=== PATIENT | female | born 1940 | race African-American/Black ===

== ENCOUNTER 2016-11-12 09:37 | Inpatient (IN) | payer OTHER ==
[~2016-11-12] VITALS: Ht 157.5 cm; Wt 93.4 kg
[2016-11-12] MEDS ORDERED: SIMVASTATIN5 MG ORAL (09:51)
[2016-11-12] MEDS ORDERED: METOPROLOL SUC100 MG ORAL (09:51)
[2016-11-12 09:59] LABS: BASOPHILS % (AUTO) 1.3 % (0.0-2.0); EOSINOPHILS % (AUTO) 0.3 % (0.0-3.0); LYMPHOCYTES % (AUTO) 33.6 % (20.0-45.0); MEAN CORPUSCULAR HGB CONC 30.7 G/DL (32.0-36.0); MEAN CORPUSCULAR VOLUME 81 FL (80-99); MEAN PLATELET VOLUME 10.3 FL (6.5-10.1); NEUTROPHILS % (AUTO) 59.8 % (45.0-75.0); PLATELET COUNT 217 K/UL (150-450); RED BLOOD COUNT 5.76 M/UL (4.20-5.40); RED CELL DISTRIBUTION WIDTH 14.9 % (11.6-14.8); WHITE BLOOD COUNT 12.6 K/UL (4.8-10.8)
[2016-11-12 10:10] LABS: INR 1.1 (0.9-1.1); PROTHROMBIN TIME 11.5 SEC (9.30-11.50)
[2016-11-12 10:14] LABS: ALANINE AMINOTRANSFERASE 17 U/L (3-33); ANION GAP 18 (5-15); ASPARTATE AMINO TRANSFERASE 27 U/L (5-40); CALCIUM 9.9 mg/dL (8.6-10.2); CARBON DIOXIDE 24 mEQ/L (20-30); CHLORIDE 101 mEQ/L (98-107); CREATININE 0.8 mg/dL (0.5-0.9); HEMOLYSIS 83; LIPASE 42 U/L (< 60); MAGNESIUM 2.1 mg/dL (1.7-2.5); PHOSPHORUS 4.6 mg/dL (2.5-4.8); POTASSIUM 4.5 mEQ/L (3.4-4.9); SODIUM 143 mEQ/L (135-145); TOTAL PROTEIN 7.8 g/dL (6.6-8.7)
[2016-11-12 10:17] VITALS: BP 151/78
[2016-11-12 10:18] LABS: REFLEX LACTIC ACID YES OR NO YES
[2016-11-12 10:29] LABS: TROPONIN I < 0.30 ng/mL (<=0.30)
[2016-11-12 10:39] LABS: CKMB 3.3 ng/mL (< 3.8)
[2016-11-12 10:46] LABS: APPEARANCE,URINE CLEAR; KETONES,URINE NEGATIVE (NEGATIVE); LEUKOCYTE ESTERASE ,URINE NEGATIVE (NEGATIVE); NITRITE,URINE NEGATIVE (NEGATIVE); PH,URINE 6 (4.5-8.0); PROTEIN,URINE 4+ (NEGATIVE); UROBILINOGEN,URINE NORMAL MG/DL (0.0-1.0)
[2016-11-12 11:01] LABS: BACTERIA,URINE OCCASIONAL /HPF; SQUAMOUS EPITHELIAL CELL,UR OCCASIONAL /LPF (NONE/OCC); WBC,URINE 0-2 /HPF (0 - 2)
[2016-11-12 11:18] VITALS: BP 110/94
[2016-11-12 12:57] VITALS: BP 155/82
--- NOTE | 2016-11-12 13:34 | Emergency Room Report ---
History of Present Illness General Chief Complaint: Dyspnea/Respdistress Source: Patient, EMS Present Illness HPI Patient presented in acute respiratory distress Tachypneic retractions It was difficult to initially obtain any history from the patient given her respiratory distress Patient was given a history of hypertension Denied CHF Onset of symptoms appears to be this morning patient had driven herself to a clinic and paramedics were summoned Patient's history present illness remains significantly limited secondary to her medical condition There was no reports of vomiting at the scene no reports of syncope Please note that contact was made with HCP HMO who report the patient has had previous admission for Asthmatic bronchitis, and does have a history of hypertension Allergies: Coded Allergies: No Known Allergies (Unverified , 11/12/16) Patient History Past Medical History: see triage record Pertinent Family History: none Reviewed Nursing Documentation: PMH: Agreed, PSxH: Agreed Nursing Documentation-PMH Hx Hypertension: Yes Review of Systems All Other Systems: negative except mentioned in HPI Physical Exam Vital Signs Date Time Temp Pulse Resp B/P Pulse Ox O2 Delivery O2 Flow Rate FiO2 11/12/16 09:19 224/164 Non-Rebreather 11/12/16 09:35 136 31 100 100 11/12/16 12:57 97.8 Sp02 EP Interpretation: reviewed, normal General Appearance: moderate distress - Patient appears in acute distress tachypneic Head: normocephalic, atraumatic Eyes: bilateral eye EOMI, bilateral eye PERRL ENT: normal pharynx, no angioedema Neck: supple, thyroid normal, no meningismus Respiratory: respiratory distress, crackles - Diffusely, rales Cardiovascular #1: no gallop, no JVD, tachycardia Gastrointestinal: non tender, soft, no mass Genitourinary: no CVA tenderness Musculoskeletal: normal inspection Neurologic: alert, oriented x3, responsive Skin: other - Dependent edema in both lower shimmery Lymphatic: normal inspection Procedures Critical Care Time Critical Care Time 40 minutes for initial critical presentation Presentation concerning for respiratory failure and acute Not including any positional time Medical Decision Making Diagnostic Impression: Primary Impression: Respiratory distress ER Course Patient is a fairly complex patient with multiple differential to consideration including but not limited to cardiac cardiopulmonary and vascular emergencies Patient's x-rays concerning for congestive heart failure Was also concern of mild increased markings in the right side before antibiotics were given also given the high lactic acid Patient's BNP is also elevated patient was given for the diuretics is on BiPAP has done significantly better and requires admission for further care Labs Test 11/12/16 09:30 11/12/16 10:12 11/12/16 11:10 White Blood Count 12.6 K/UL (4.8-10.8) Red Blood Count 5.76 M/UL (4.20-5.40) Hemoglobin 14.4 G/DL (12.0-16.0) Hematocrit 46.9 % (37.0-47.0) Mean Corpuscular Volume 81 FL (80-99) Mean Corpuscular Hemoglobin 25.0 PG (27.0-31.0) Mean Corpuscular Hemoglobin Concent 30.7 G/DL (32.0-36.0) Red Cell Distribution Width 14.9 % (11.6-14.8) Platelet Count 217 K/UL (150-450) Mean Platelet Volume 10.3 FL (6.5-10.1) Neutrophils (%) (Auto) 59.8 % (45.0-75.0) Lymphocytes (%) (Auto) 33.6 % (20.0-45.0) Monocytes (%) (Auto) 5.0 % (1.0-10.0) Eosinophils (%) (Auto) 0.3 % (0.0-3.0) Basophils (%) (Auto) 1.3 % (0.0-2.0) Prothrombin Time 11.5 SEC (9.30-11.50) Prothromb Time International Ratio 1.1 (0.9-1.1) Activated Partial Thromboplast Time 21 SEC (23-33) Sodium Level 143 mEQ/L (135-145) Potassium Level 4.5 mEQ/L (3.4-4.9) Chloride Level 101 mEQ/L (98-107) Carbon Dioxide Level 24 mEQ/L (20-30) Anion Gap 18 (5-15) Blood Urea Nitrogen 14 mg/dL (7-23) Creatinine 0.8 mg/dL (0.5-0.9) Estimat Glomerular Filtration Rate mL/min (>60) Glucose Level 234 mg/dL (74-106) Lactic Acid Level 2.90 mmol/L (0.66-2.22) 2.20 mmol/L (0.66-2.22) Calcium Level 9.9 mg/dL (8.6-10.2) Phosphorus Level 4.6 mg/dL (2.5-4.8) Magnesium Level 2.1 mg/dL (1.7-2.5) Total Bilirubin 0.3 mg/dL (0.0-1.2) Aspartate Amino Transf (AST/SGOT) 27 U/L (5-40) Alanine Aminotransferase (ALT/SGPT) 17 U/L (3-33) Alkaline Phosphatase 84 U/L (35-104) Total Creatine Kinase 78 U/L (26-140) Creatine Kinase MB 3.3 ng/mL (< 3.8) Creatine Kinase MB Relative Index 4.2 Troponin I < 0.30 ng/mL (<=0.30) Pro-B-Type Natriuretic Peptide 932 pg/mL (0-125) Total Protein 7.8 g/dL (6.6-8.7) Albumin 3.9 g/dL (3.5-5.2) Globulin 3.9 g/dL Albumin/Globulin Ratio 1.0 (1.0-2.7) Lipase 42 U/L (< 60) Urine Color Pale yellow Urine Appearance Clear Urine pH 6 (4.5-8.0) Urine Specific [place] 1.020 (1.005-1.035) Urine Protein 4+ (NEGATIVE) Urine Glucose (UA) 1+ (NEGATIVE) Urine Ketones Negative (NEGATIVE) Urine Occult Blood 2+ (NEGATIVE) Urine Nitrite Negative (NEGATIVE) Urine Bilirubin Negative (NEGATIVE) Urine Urobilinogen Normal MG/DL (0.0-1.0) Urine Leukocyte Esterase Negative (NEGATIVE) Urine RBC 5-10 /HPF (0 - 2) Urine WBC 0-2 /HPF (0 - 2) Urine Squamous Epithelial Cells Occasional /LPF Urine Bacteria Occasional /HPF (NONE) EKG Diagnostic Results Rate: tachycardiac Rhythm: NSR ST Segments: other - Nonspecific ST and T-wave changes Rhythm Strip Diag. Results EP Interpretation: yes Rate: 110 Rhythm: no PVC's, no ectopy, other - sinus tach Chest X-Ray Diagnostic Results EP Interpretation: Yes Findings: no consolidation, no pneumothorax, other - Pulmonary congestion, cardiomegaly Number of Views: 1 Last Vital Signs Date Time Temp Pulse Resp B/P Pulse Ox O2 Delivery O2 Flow Rate FiO2 11/12/16 12:57 97.8 84 17 155/82 99 Room Air 11/12/16 12:44 50 Status: improved Disposition: ADMITTED INPATIENT Condition: Serious Referrals: [facility],REFERRING (PCP) JANE HUNTER D.O. Nov 12, 2016 13:34
--- NOTE | 2016-11-12 13:54 | Diagnostic Imaging Report ---
Indication: Dyspnea Comparison: None A single view chest radiograph was obtained. Findings: Vascular congestion and bilateral hilar vascular prominence noted. Heart is enlarged. The bones are osteopenic. Impression: Congestive heart failure
[2016-11-12 13:58] VITALS: BP 124/81
--- NOTE | 2016-11-12 15:07 | History & Physical ---
History and Physical History & Physicial dict malignant HTN CHF ACS, LBBB high BS HPLD see orders NERY CEBALLOS Nov 12, 2016 15:07
[2016-11-12] MEDS ORDERED: Zolpidem 5mg tab ORAL PRN (15:15)
[2016-11-12 16:00] VITALS: BP 114/70
[2016-11-12] MEDS ORDERED: Heparin 5000 units/ml inj IV ONE (16:45)
[2016-11-12] MEDS ORDERED: Heparin 25,000u/D5W 500ml 500 ML IV SCH (16:45)
[2016-11-12] MEDS: NovoLOG Insulin Flexpen SUBQ SCH ×2 (17:00→20:48)
[2016-11-12] MEDS: Furosemide 40mg tab ORAL SCH (17:00)
[2016-11-12] MEDS: Aspirin Baby 81mg ORAL SCH (19:04)
[2016-11-12] MEDS: Lisinopril 20mg tab ORAL SCH (19:04)
--- NOTE | 2016-11-12 19:59 | History and Physical Report ---
DATE OF ADMISSION: 11/12/2016 Admitted and seen on 11/12/2016. HISTORY OF PRESENT ILLNESS: The patient is a 75-year-old woman who comes to the hospital by paramedics through the emergency department because of shortness of breath. She was in severe distress when she arrived and was placed on BiPAP. She was found to have congestive heart failure and malignant hypertension. She was given diuretics and improved. Now, she is off BiPAP and feeling better. PAST HISTORY: The patient says that she has had hypertension and hyperlipidemia for many years. She denies any history of heart disorder or any lung problems. She did have pneumonia several years ago and had an inhaler that did not help her today. She is a past smoker, but quit many years ago. She states she denies diabetes. SURGICAL HISTORY: Includes hysterectomy. REVIEW OF SYSTEMS: She has osteoarthritis of the knees. She has occasional ankle edema. She has no chest pain. She has no gastrointestinal or urinary problems. MEDICATIONS: Metoprolol and simvastatin. ALLERGIES: None. PHYSICAL EXAMINATION: GENERAL: The patient is obese, alert, not in distress. VITAL SIGNS: The blood pressure was elevated at 224/164, but has come down now to 110/94. Other vital signs are normal. She was markedly tachycardic, but this has also improved. HEENT: The head is normocephalic. NECK: No jugular venous distention. CHEST: Clear. CARDIAC: Rhythm is regular without murmur or gallop. ABDOMEN: Soft and nontender. Liver and spleen not enlarged. EXTREMITIES: No clubbing, cyanosis, or edema. DIAGNOSTIC AND LABORATORY DATA: Chest x-ray shows congestive heart failure. Laboratory studies show a natriuretic peptide of 932. Blood sugar 234. Lactic acid was elevated, but improved. Hemogram shows a white count of 12,600, and hemoglobin is 14.4. Urinalysis is negative. Coagulation is normal. IMPRESSION: 1. Malignant hypertension. 2. Congestive heart failure. 3. Possible acute coronary syndrome with left bundle-branch block on EKG. 4. Hyperglycemia without history of diabetes. PLAN: The patient will be given oxygen, diuretics, and blood pressure medications. We will check her hemoglobin A1c and monitor her blood sugar. Cardiology consultation was requested. Thank you so much. Delvin Hall M.D. DR: ANNA JOB#: [id number] CC: Cabrera Rasmussen M.D.
[2016-11-12 20:00] VITALS: BP 149/67
[2016-11-12] MEDS: Atorvastatin 80mg tab ORAL SCH (20:43)
[2016-11-12 21:10] LABS: BASOPHILS % (AUTO) 0.9 % (0.0-2.0); EOSINOPHILS % (AUTO) 0.1 % (0.0-3.0); LYMPHOCYTES % (AUTO) 13.2 % (20.0-45.0); MEAN CORPUSCULAR HGB CONC 31.7 G/DL (32.0-36.0); MEAN CORPUSCULAR VOLUME 82 FL (80-99); MEAN PLATELET VOLUME 8.5 FL (6.5-10.1); MONOCYTES % (AUTO) 5.6 % (1.0-10.0); NEUTROPHILS % (AUTO) 80.3 % (45.0-75.0); PLATELET COUNT 155 K/UL (150-450); RED BLOOD COUNT 4.45 M/UL (4.20-5.40); RED CELL DISTRIBUTION WIDTH 14.3 % (11.6-14.8); WHITE BLOOD COUNT 14.6 K/UL (4.8-10.8)
[2016-11-12 21:49] LABS: TROPONIN I < 0.30 ng/mL (<=0.30)
[2016-11-13] VITALS: BP 141/76
[2016-11-13] MEDS ORDERED: Heparin 25,000u/D5W 500ml 500 ML IV SCH ×2 (01:59→09:20)
[2016-11-13] MEDS ORDERED: Heparin 5000 units/ml inj IV ONE (02:00)
[2016-11-13 04:00] VITALS: BP 156/86
[2016-11-13 05:15] LABS: BASOPHILS % (AUTO) 0.3 % (0.0-2.0); EOSINOPHILS % (AUTO) 0.2 % (0.0-3.0); LYMPHOCYTES % (AUTO) 12.9 % (20.0-45.0); MEAN CORPUSCULAR HEMOGLOBIN 25.9 PG (27.0-31.0); MEAN CORPUSCULAR HGB CONC 32.1 G/DL (32.0-36.0); MEAN CORPUSCULAR VOLUME 81 FL (80-99); MEAN PLATELET VOLUME 9.6 FL (6.5-10.1); MONOCYTES % (AUTO) 7.2 % (1.0-10.0); NEUTROPHILS % (AUTO) 79.4 % (45.0-75.0); PLATELET COUNT 170 K/UL (150-450); RED BLOOD COUNT 4.41 M/UL (4.20-5.40); RED CELL DISTRIBUTION WIDTH 14.9 % (11.6-14.8); WHITE BLOOD COUNT 15.8 K/UL (4.8-10.8)
[2016-11-13 05:28] LABS: ANION GAP 14 (5-15); CALCIUM 9.5 mg/dL (8.6-10.2); CARBON DIOXIDE 28 mEQ/L (20-30); CHLORIDE 99 mEQ/L (98-107); CHOLESTEROL 197 mg/dL (< 200); CHOLESTEROL/HDL RATIO 4.6 (3.3-4.4); CREATININE 0.8 mg/dL (0.5-0.9); HEMOLYSIS 2; LDL CHOLESTEROL (CALC.) 140 mg/dL (60-99); POTASSIUM 3.9 mEQ/L (3.4-4.9); SODIUM 141 mEQ/L (135-145)
[2016-11-13 05:42] LABS: THYROID STIMULATING HORMONE 0.598 uIU/mL (0.300-4.500)
[2016-11-13] MEDS: NovoLOG Insulin Flexpen SUBQ SCH ×4 (06:05→21:00)
--- NOTE | 2016-11-13 07:09 | Consultation ---
DATE OF CONSULTATION: 11/12/2016 NOTE: POOR AUDIO QUALITY CARDIOLOGY CONSULTATION: REQUESTING PHYSICIAN: Delvin Hall M.D. REASON FOR CONSULTATION: Congestive heart failure. HISTORY OF PRESENT ILLNESS: This is a 75-year-old female. She has a history of hypertension. She claims compliance with her medication regimen although she missed a dose this morning. Her SOB progressed rapidly and she required transfer to emergency room. She was noted with some swelling over her legs the past week. She has had not any shortness of breath event prior to this morning. In the emergency room, the patient was noted to have significant hypoxia. She was placed on BiPAP. She was given diuretics and improved . PAST MEDICAL HISTORY: Hypertension, hyperlipidemia, and glucose intolerance. MEDICATIONS: Reviewed and reconciled. ALLERGIES: Reviewed in chart. SOCIAL HISTORY: Negative for smoking, alcohol, or substance abuse. REVIEW OF SYSTEMS: No fever or chills. No sputum production. No recent respiratory infection. No history of seizures. No change in bowel habits. No dysuria. No history of blood clots in the legs. There is no history of thyroid disorder. PHYSICAL EXAMINATION: GENERAL: The patient is moderately obese in mild respiratory distress. VITAL SIGNS: Blood pressure in the emergency room 185/105 subsequently improved to 130/60, heart rate initially 129, now 100 range, respiratory 20 to 24, and she is afebrile. HEENT: Normocephalic and atraumatic. Conjunctivae are pink. Sclerae are anicteric. Oropharynx clear. NECK: Supple. Jugular venous pressure elevated . LUNGS: Diminished breath sounds with basilar rales bilaterally. CARDIAC: Regular rhythm and rate. Normal S1 and S2. A 1/6 systolic murmur at apex. ABDOMEN: Soft and nontender. EXTREMITIES: 1+ dependent edema bilaterally. NEUROLOGIC: Nonfocal. LABORATORY AND DIAGNOSTIC DATA: EKG, sinus tachycardia, left bundle-branch block, and nonsustained ventricular arrhythmia. Natriuretic peptide is over 900. IMPRESSION: 1. Acute on chronic diastolic congestive heart failure. 2. Hypertensive urgency. 3. Acute myocardial ischemia. 4. Nonsustained ventricular tachycardia. 5. Sinus tachycardia. 6. Hypertensive heart disease. PLAN: Cardiac monitoring. Diuresis with intravenous diuretics. Blood pressure optimization with combination of angiotensin-converting enzyme inhibitor and beta-sarthak. DVT and stress ulcer prophylaxis. Monitor for further malignant arrhythmias. Review imaging studies and consider ischemia workup once above data is available. Cabrera Rasmussen M.D. DR: Leonard JOB#: [id number] CC: HUNTER
[2016-11-13 08:00] VITALS: BP 148/76
[2016-11-13] MEDS: Aspirin Baby 81mg ORAL SCH (08:39)
[2016-11-13] MEDS: Lisinopril 20mg tab ORAL SCH ×2 (08:40→17:50)
[2016-11-13] MEDS: Furosemide 40mg tab ORAL SCH (08:40)
[2016-11-13] MEDS: Heparin 25,000u/D5W 500ml 500 ML IV SCH ×2 (10:26→22:32)
[2016-11-13 12:00] VITALS: BP 143/87
[2016-11-13 15:48] VITALS: BP 136/60
[2016-11-13 16:22] LABS: TROPONIN I < 0.30 ng/mL (<=0.30)
--- NOTE | 2016-11-13 18:14 | Pulmonology Progress Note ---
Assessment/Plan Assessment/Plan 1. Malignant hypertension. 2. Congestive heart failure. EF 45-50% 3. Possible acute coronary syndrome with left bundle-branch block on EKG. 4. Hyperglycemia without history of diabetes 5 mild PAH on echo. PLAN: bp control diuresis heparin drip per rx flores for now ishcemic work up per cards recommendations, trops negative at this point. no abx prn nebs bs control Subjective Constitutional: Reports: no symptoms HEENT: Repors: no symptoms Respiratory: Reports: no symptoms Cardiovascular: Reports: no symptoms Gastrointestinal/Abdominal: Reports: no symptoms Genitourinary: Reports: no symptoms Neurologic: Reports: no symptoms Skin: Reports: other - edema Allergies: Coded Allergies: No Known Allergies (Unverified , 11/12/16) Subjective seen and examined feeling much better today on supple o2 no cp nv or bleeding on heparin per rx oob flores in place positive uop Objective Last 24 Hour Vital Signs Date Time Temp Pulse Resp B/P Pulse Ox O2 Delivery O2 Flow Rate FiO2 11/13/16 17:50 136/60 11/13/16 15:48 96.1 79 19 136/60 99 1.0 11/13/16 12:00 69 11/13/16 12:00 97.7 74 21 143/87 100 Nasal Cannula 1.0 11/13/16 08:46 94 11/13/16 08:40 147/86 11/13/16 08:00 97.7 69 20 148/76 100 Nasal Cannula 1.0 11/13/16 04:00 74 11/13/16 04:00 97.4 72 24 156/86 100 Nasal Cannula 3.0 11/13/16 00:00 97.7 78 24 141/76 100 Nasal Cannula 3.0 11/13/16 00:00 74 11/12/16 20:00 98.1 87 20 149/67 99 Nasal Cannula 11/12/16 20:00 80 11/12/16 19:04 159/79 Intake and Output 11/12/16 11/13/16 19:00 07:00 Intake Total 660 ml 255.104 ml Output Total 1900 ml 200 ml Balance -1240 ml 55.104 ml Intake Oral 510 ml IV Total 150 ml 255.104 ml Output Urine Total 1900 ml 200 ml General Appearance: WD/WN HEENT: normocephalic, anicteric Respiratory/Chest: crackles/rales Cardiovascular: normal rate, regular rhythm Abdomen: soft, non tender, no organomegaly Extremities: no cyanosis, no clubbing, other - edmea Skin: no rash, no lesions Neurologic/Psychiatric: no motor/sensory deficits, oriented x 3, responsive Laboratory Tests 11/12/16 20:38: White Blood Count 14.6H, Red Blood Count 4.45, Hemoglobin 11.6L, Hematocrit 36.5L, Mean Corpuscular Volume 82, Mean Corpuscular Hemoglobin 26.0L, Mean Corpuscular Hemoglobin Concent 31.7L, Red Cell Distribution Width 14.3, Platelet Count 155, Mean Platelet Volume 8.5, Neutrophils (%) (Auto) 80.3H, Lymphocytes (%) (Auto) 13.2L, Monocytes (%) (Auto) 5.6, Eosinophils (%) (Auto) 0.1, Basophils (%) (Auto) 0.9, Activated Partial Thromboplast Time 28, Hemoglobin A1c 5.7, Troponin I < 0.30 11/13/16 01:00: Activated Partial Thromboplast Time 31 11/13/16 03:00: White Blood Count 15.8H, Red Blood Count 4.41, Hemoglobin 11.4L, Hematocrit 35.5L, Mean Corpuscular Volume 81, Mean Corpuscular Hemoglobin 25.9L, Mean Corpuscular Hemoglobin Concent 32.1, Red Cell Distribution Width 14.9H, Platelet Count 170, Mean Platelet Volume 9.6, Neutrophils (%) (Auto) 79.4H, Lymphocytes (%) (Auto) 12.9L, Monocytes (%) (Auto) 7.2, Eosinophils (%) (Auto) 0.2, Basophils (%) (Auto) 0.3, Sodium Level 141, Potassium Level 3.9, Chloride Level 99, Carbon Dioxide Level 28, Anion Gap 14, Blood Urea Nitrogen 15, Creatinine 0.8, Estimat Glomerular Filtration Rate , Glucose Level 119#H, Calcium Level 9.5, Triglycerides Level 72, Cholesterol Level 197, LDL Cholesterol 140H, HDL Cholesterol 43, Cholesterol/HDL Ratio 4.6H, Thyroid Stimulating Hormone (TSH) 0.598 11/13/16 08:20: Activated Partial Thromboplast Time > 150*H 11/13/16 15:20: Activated Partial Thromboplast Time 89H, Troponin I < 0.30 Current Medications Medications (Trade) Dose Ordered Sig/Migdalia Route PRN Reason Start Time Stop Time Status Last Admin Dose Admin Acetaminophen (Tylenol) 650 mg Q4H PRN ORAL Mild Pain (Pain Scale 1-3) 11/12/16 15:15 12/12/16 15:14 Aspirin (ASA) 162 mg DAILY ORAL 11/12/16 17:00 12/12/16 16:59 11/13/16 08:39 Atorvastatin Calcium (Lipitor) 80 mg BEDTIME ORAL 11/12/16 21:00 12/12/16 20:59 11/12/16 20:43 Dextrose STAT PRN IV Hypoglycemia 11/12/16 15:15 12/12/16 15:14 Furosemide (Lasix) 40 mg DAILY ORAL 11/12/16 17:00 12/12/16 16:59 11/13/16 08:40 Heparin Sodium/ Dextrose (Heparin) 500 ml @ 20.684 mls/ hr adjust per protocol IV 11/13/16 10:20 12/13/16 10:19 11/13/16 10:26 Insulin Aspart (NovoLOG) BEFORE MEALS AND HS SUBQ 11/12/16 17:00 12/12/16 16:59 11/13/16 06:05 Lisinopril (Prinivil) 20 mg BID ORAL 11/12/16 18:00 12/12/16 17:59 11/13/16 17:50 Metoprolol Tartrate (Lopressor) 100 mg EVERY 12 HOURS ORAL 11/14/16 09:00 12/14/16 08:59 Zolpidem Tartrate (Ambien) 5 mg HSPRN PRN ORAL Insomnia 11/12/16 15:15 12/12/16 15:14 GERONIMO JEFFREY DO Nov 13, 2016 18:14
[2016-11-13 20:00] VITALS: BP 140/79
[2016-11-13] MEDS: Atorvastatin 80mg tab ORAL SCH (22:25)
[2016-11-14] VITALS: BP 159/76
[2016-11-14 04:00] VITALS: BP 145/85
[2016-11-14 05:06] LABS: BASOPHILS % (AUTO) 0.6 % (0.0-2.0); EOSINOPHILS % (AUTO) 1.9 % (0.0-3.0); LYMPHOCYTES % (AUTO) 19.8 % (20.0-45.0); MEAN CORPUSCULAR HEMOGLOBIN 25.7 PG (27.0-31.0); MEAN CORPUSCULAR HGB CONC 32.1 G/DL (32.0-36.0); MEAN CORPUSCULAR VOLUME 80 FL (80-99); MEAN PLATELET VOLUME 10.7 FL (6.5-10.1); MONOCYTES % (AUTO) 7.5 % (1.0-10.0); NEUTROPHILS % (AUTO) 70.1 % (45.0-75.0); PLATELET COUNT 174 K/UL (150-450); RED BLOOD COUNT 4.53 M/UL (4.20-5.40); RED CELL DISTRIBUTION WIDTH 14.9 % (11.6-14.8); WHITE BLOOD COUNT 11.5 K/UL (4.8-10.8)
[2016-11-14] MEDS: NovoLOG Insulin Flexpen SUBQ SCH ×4 (06:14→21:41)
[2016-11-14 07:16] LABS: ANION GAP 11 (5-15); CALCIUM 9.9 mg/dL (8.6-10.2); CARBON DIOXIDE 30 mEQ/L (20-30); CHLORIDE 101 mEQ/L (98-107); CREATININE 0.6 mg/dL (0.5-0.9); HEMOLYSIS 3; POTASSIUM 3.8 mEQ/L (3.4-4.9); SODIUM 142 mEQ/L (135-145)
[2016-11-14 08:00] VITALS: BP 152/90
[2016-11-14] MEDS: Aspirin Baby 81mg ORAL SCH (08:38)
[2016-11-14] MEDS: Furosemide 40mg tab ORAL SCH (08:38)
[2016-11-14] MEDS: Lisinopril 20mg tab ORAL SCH ×2 (08:39→18:10)
[2016-11-14] MEDS: Heparin 5000 units/ml inj SUBQ SCH ×2 (08:44→21:43)
[2016-11-14 12:00] VITALS: BP 158/82
--- NOTE | 2016-11-14 12:48 | Consultation ---
Consult Note Consult Note Cardiac EP full note dictated. #[id number] KT BURDICK Nov 14, 2016 12:47
[2016-11-14 17:08] VITALS: BP 122/82
--- NOTE | 2016-11-14 20:22 | Pulmonology Progress Note ---
Assessment/Plan Assessment/Plan 1. Malignant hypertension. 2. Congestive heart failure. EF 45-50% 3. Possible acute coronary syndrome with left bundle-branch block on EKG. 4. Hyperglycemia without history of diabetes 5 mild PAH on echo. PLAN: bp control better diuresis 3.5 l negative flores for now ishcemic work up per cards recommendations, trops negative at this point. no abx prn nebs bs control dc planning if no further cardiac interventions planned Subjective Constitutional: Reports: no symptoms HEENT: Repors: no symptoms Respiratory: Reports: no symptoms Cardiovascular: Reports: no symptoms Genitourinary: Reports: no symptoms Neurologic: Reports: no symptoms Allergies: Coded Allergies: No Known Allergies (Unverified , 11/12/16) Subjective seen and examined feeling much better today on supple o2, will check ra sat no cp nv or bleeding off heparin drip at this time oob flores in place positive uop echo completed Objective Last 24 Hour Vital Signs Date Time Temp Pulse Resp B/P Pulse Ox O2 Delivery O2 Flow Rate FiO2 11/14/16 18:10 122/82 11/14/16 17:08 96.8 68 20 122/82 98 Nasal Cannula 1.0 11/14/16 12:00 62 11/14/16 12:00 97.0 62 18 158/82 100 Nasal Cannula 1.0 11/14/16 08:39 152/90 11/14/16 08:38 82 152/90 11/14/16 08:00 69 11/14/16 08:00 97.2 82 21 152/90 100 Nasal Cannula 1.0 11/14/16 04:00 74 11/14/16 04:00 97.5 81 20 145/85 100 Nasal Cannula 2.0 11/14/16 00:00 78 11/14/16 00:00 98.1 83 20 159/76 99 Nasal Cannula 2.0 Intake and Output 11/13/16 11/14/16 19:00 07:00 Intake Total 659.494 ml 103.404 ml Output Total 600 ml 1400 ml Balance 59.494 ml -1296.596 ml Intake Oral 370 ml IV Total 289.494 ml 103.404 ml Output Urine Total 600 ml 1400 ml General Appearance: WD/WN HEENT: atraumatic, anicteric Respiratory/Chest: lungs clear Cardiovascular: normal rate, regular rhythm Abdomen: soft, non tender, no organomegaly Extremities: no cyanosis, no clubbing Skin: no rash, no lesions 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, oriented x 3 Lymphatic: no neck adenopathy Microbiology Date/Time Source Procedure Growth Status 11/12/16 09:45 Blood Blood Culture - Preliminary NO GROWTH AFTER 24 HOURS Resulted 11/12/16 09:30 Blood Blood Culture - Preliminary NO GROWTH AFTER 24 HOURS Resulted Laboratory Tests 11/14/16 03:30: White Blood Count 11.5H, Red Blood Count 4.53, Hemoglobin 11.6L, Hematocrit 36.3L, Mean Corpuscular Volume 80, Mean Corpuscular Hemoglobin 25.7L, Mean Corpuscular Hemoglobin Concent 32.1, Red Cell Distribution Width 14.9H, Platelet Count 174, Mean Platelet Volume 10.7H, Neutrophils (%) (Auto) 70.1, Lymphocytes (%) (Auto) 19.8L, Monocytes (%) (Auto) 7.5, Eosinophils (%) (Auto) 1.9, Basophils (%) (Auto) 0.6, Activated Partial Thromboplast Time 60H, Sodium Level 142, Potassium Level 3.8, Chloride Level 101, Carbon Dioxide Level 30, Anion Gap 11, Blood Urea Nitrogen 20, Creatinine 0.6, Estimat Glomerular Filtration Rate , Glucose Level 110H, Calcium Level 9.9, Pro-B-Type Natriuretic Peptide 252H Current Medications Medications (Trade) Dose Ordered Sig/Migdalia Route PRN Reason Start Time Stop Time Status Last Admin Dose Admin Acetaminophen (Tylenol) 650 mg Q4H PRN ORAL Mild Pain (Pain Scale 1-3) 11/12/16 15:15 12/12/16 15:14 Aspirin (ASA) 162 mg DAILY ORAL 11/12/16 17:00 12/12/16 16:59 11/14/16 08:38 Atorvastatin Calcium (Lipitor) 80 mg BEDTIME ORAL 11/12/16 21:00 12/12/16 20:59 11/13/16 22:25 Dextrose (Dextrose 50%) STAT PRN IV Hypoglycemia 11/12/16 15:15 12/12/16 15:14 Furosemide (Lasix) 40 mg DAILY ORAL 11/12/16 17:00 12/12/16 16:59 11/14/16 08:38 Heparin Sodium (Porcine) (Heparin 5000 units/ml) 5,000 units EVERY 12 HOURS SUBQ 11/14/16 09:00 12/14/16 08:59 11/14/16 08:44 Insulin Aspart (NovoLOG) BEFORE MEALS AND HS SUBQ 11/12/16 17:00 12/12/16 16:59 11/14/16 06:14 Lisinopril (Prinivil) 20 mg BID ORAL 11/12/16 18:00 12/12/16 17:59 11/14/16 18:10 Metoprolol Tartrate (Lopressor) 100 mg EVERY 12 HOURS ORAL 11/14/16 09:00 12/14/16 08:59 11/14/16 08:38 Zolpidem Tartrate (Ambien) 5 mg HSPRN PRN ORAL Insomnia 11/12/16 15:15 12/12/16 15:14 GERONIMO JEFFREY DO Nov 14, 2016 20:22
[2016-11-14 21:12] VITALS: BP 149/72
[2016-11-14] MEDS: Atorvastatin 80mg tab ORAL SCH (21:42)
[2016-11-14] MEDS ORDERED: KCl 10% 20 mEq/15ml liquid ORAL ONE (22:30)
--- NOTE | 2016-11-14 23:49 | Consultation ---
DATE OF CONSULTATION: CARDIAC ELECTROPHYSIOLOGY CONSULTATION REASON FOR CONSULT: Ventricular tachycardia and supraventricular tachycardia. HISTORY OF PRESENT ILLNESS: The patient is a very pleasant 75-year-old woman with a history of hypertension, hyperlipidemia, obesity, and diastolic heart failure who was admitted with increasing shortness of breath over the past one to two days. She also noted bilateral leg swelling. She had no chest pain, palpitations, dizziness, or syncope. In the emergency room, she was noted to have a blood pressure of 224/164 and a pulse of 136 beats per minute, sinus tachycardia. She was given diuretics and placed on BiPAP. She was also started on intravenous antibiotics, as there was concern for some increased right . She presented to an outpatient clinic, but due to respiratory distress, paramedics were called and she was brought to the emergency room. In the emergency room, her blood pressure was 224/164, pulse 136 beats per minute, sinus tachycardia. Chest x-ray showed cardiomegaly, pulmonary congestion, and possible right lower lung infiltrate. She received intravenous diuretics, was placed on BiPAP and also received antibiotics. She was admitted to telemetry. On telemetry, she was noted to have an 8-beat and a 10-beat run of ventricular tachycardia as well as a 9-beat run of supraventricular tachycardia yesterday. She reports no palpitations or other symptoms with this arrhythmia. Her baseline EKG shows a left bundle branch block. Cardiac electrophysiology evaluation was requested. PAST MEDICAL HISTORY: As noted above. Hypertension, hyperlipidemia, morbid obesity, and osteoarthritis of the knees. PAST SURGICAL HISTORY: Status post total abdominal hysterectomy for fibroids. MEDICATIONS: Medications at home, metoprolol and simvastatin. Medications in the hospital, metoprolol 100 mg p.o. q.12 hours, subcutaneous heparin 5000 units q.12 h., atorvastatin 80 mg nightly, Prinivil 20 mg p.o. b.i.d., aspirin 162 mg daily, Lasix 40 mg p.o. daily, NovoLog insulin, Tylenol p.r.n., and Ambien as needed. ALLERGIES: No known drug allergies. SOCIAL HISTORY: The patient is a nonsmoker. Does not drink alcohol and has no history of drug use. PHYSICAL EXAMINATION: VITAL SIGNS: Blood pressure is 158/82, pulse 62 and regular, respirations 20, and afebrile. Oxygen saturation 100% on 1 liter/minute nasal cannula. HEENT: Normocephalic and atraumatic. Pupils are equal, round, and reactive to light. Sclerae anicteric. Oral mucosa are moist. NECK: Supple. There is no jugular venous distention. Carotid pulses are 2+ bilaterally without bruits. LUNGS: Clear to auscultation bilaterally. HEART: Regular. S1 and S2 with distant heart sounds. No murmur, S3 or S4. ABDOMEN: Obese, soft, nontender. Healed midline surgical scar. No palpable mass. EXTREMITIES: A 1 to 2+ pedal and ankle edema bilaterally. A 2+ dorsalis pedis pulses bilaterally. LABORATORY DATA: Hemoglobin of 11.6, white blood count 11,500, and platelets 174,000. Sodium 142, potassium 3.8, BUN 20, creatinine 0.6, and glucose 110. Troponin less than 0.3 on admission and on repeat the following day, natriuretic peptide 252. Imaging Studies: Chest x-ray shows cardiomegaly, pulmonary vascular congestion and hilar prominence. EKG shows sinus tachycardia, rate of 128 beats per minute. Premature supraventricular complexes. Left bundle-branch block with QRS duration of 124 milliseconds. Telemetry showed an 8-beat and a 10-beat run of ventricular tachycardia. Rate is 150 beats per minute. Telemetry shows a 9-beat run of a wide complex tachycardia, average rate about 140 beats per minute with QRS morphology different than baseline on 11/13/2016 at 4:33 a.m. Also shows 8-beat and 10-beat runs of a wide complex tachycardia, rate of about 150 beats per minute, similar QRS morphology as the monitored lead on 11/13/2016 at 11:09 a.m. and 11/13/2016 at 9:27 a.m. The episode at 9:27 a.m. has a QRS morphology slightly different than the baseline QRS monitor on telemetry. Echo shows an EF of 45 to 50%. Global left ventricular hypokinesis. Mild mitral and trace tricuspid regurgitation. ASSESSMENT AND RECOMMENDATIONS: The patient is a 75-year-old woman with a history of hypertension, hypertensive cardiomyopathy, hyperlipidemia, and morbid obesity who was admitted with an acute exacerbation of chronic diastolic heart failure. She has in this setting runs of what appeared to be ventricular tachycardia and supraventricular tachycardia. These may be due to electrolyte disturbances with intravenous diuretics. We will check potassium and magnesium. She is on appropriate therapy with beta-blockers and currently on diuretics as well as GUILLE inhibitors for blood pressure control and treatment of pulmonary congestion. She has, at baseline, left bundle-branch block. She may be a candidate for cardiac resynchronization with biventricular pacing if she continues to have heart failure despite controlled blood pressure and a trial of at least 3 months of optimal medical therapy. [place] Sauceda M.D. DR: SRINIVASA JOB#: [id number] CC:
[2016-11-15] VITALS: BP 155/87
--- NOTE | 2016-11-15 02:38 | Progress Note ---
DATE: 11/14/2016 CARDIOLOGY PROGRESS NOTE: SUBJECTIVE: The patient remains pleasant and in no distress. OBJECTIVE: VITAL SIGNS: Blood pressure 122/82, heart rate 68, and respiratory rate 20. Monitored rhythm is sinus. No recurring ventricular arrhythmias. Left bundle-branch block conduction persists. Echocardiogram reviewed. There was evidence of mild global hypokinesis, but the study has poor technical quality due to the patient's body habitus. Of note, pulmonary hypertension with PA systolic of 41 mmHg. LUNGS: Clear. CARDIAC: Regular rhythm rate. Normal S1, paradoxically split S2. ABDOMEN: Soft. EXTREMITIES: No edema. LABORATORY DATA: Natriuretic peptide is decreased to 250. Potassium 3.8. IMPRESSION: 1. Hypertensive urgency likely precipitating acute and chronic diastolic congestive heart failure. 2. Hypertensive heart disease. 3. Pulmonary hypertension. 4. Hyperlipidemia with LDL of 140. PLAN: Continue current cardiovascular regimen. Salt restrict. Consider statin therapy. Stable for outpatient followup. The patient counseled regarding compliance with medications and strict blood pressure control to ovoid recurring episodes of congestive heart failure. Cabrera Rasmussen M.D. DR: Leonard JOB#: [id number] CC:
[2016-11-15 04:00] VITALS: BP 143/73
[2016-11-15] MEDS: NovoLOG Insulin Flexpen SUBQ SCH ×2 (06:30→11:30)
[2016-11-15] MEDS ORDERED: LISINOPRIL20 MG ORAL (08:55)
[2016-11-15] MEDS ORDERED: LIPITOR80 MG ORAL (08:55)
[2016-11-15] MEDS ORDERED: METOPROLOL TAR100 MG ORAL (08:55)
[2016-11-15] MEDS ORDERED: FUROSEMIDE40 MG ORAL (08:55)
--- NOTE | 2016-11-15 08:58 | Progress Note ---
DATE: 11/13/2016 SUBJECTIVE: The patient is in good spirits. No shortness of breath. No complaints. No chest pain. Monitoring sinus and sinus tachycardia, ventricular ectopic. No recurrent ventricular tachycardia. No recent admission. OBJECTIVE: Blood pressure 152/72, pulse 88, respirations 18, O2 saturation difficult to assess. LUNGS: With few rales. CARDIAC: Regular rhythm. Normal S1 S2. A 1/6 systolic apical murmur. ABDOMEN: Soft. EXTREMITIES: Trace edema. LABORATORY DATA: White count 16.8 and hemoglobin 11.4. Potassium 3.9, BUN 15, and creatinine 1.1. IMPRESSION: 1. Acute on chronic diastolic congestive heart failure. 2. Hypertensive urgency, resolved, . 3. Hypertensive heart disease. 4. Nonsustained ventricular tachycardia. 5. Secondary sinus tachycardia. 6. Conduction system disease of the heart PLAN: Discontinue IV heparin. DVT prophylaxis. Advance lisinopril. Continue beta-sarthak. Await echocardiogram. Continue diuresis. Monitor electrolytes trend. Natriuretic peptide assay. Cabrera Rasmussen M.D. DR: Mohsen JOB#: [id number] CC:
--- NOTE | 2016-11-15 08:59 | Discharge Summary ---
Discharge Summary Hospital Course Date of Admission Nov 12, 2016 at 11:15 Date of Discharge 11/15/16 Admitting Diagnosis respiratory distress HPI Naty Forrest is a 75 year old female who was admitted on Nov 12, 2016 at 11:15 for Respiratory Distress Consultations cardiology Procedures no Hospital Course 1. Hypertensive urgency likely precipitating acute and chronic diastolic congestive heart failure. 2. Hypertensive heart disease. 3. Pulmonary hypertension. 4. Hyperlipidemia with LDL of 140. improved w diuresis and BP control. Troponins neg. Discharge Medications New Medications: Atorvastatin (Lipitor) 80 Mg Tablet 80 MG ORAL BEDTIME, #30 TAB Furosemide* (Lasix*) 40 Mg Tablet 40 MG ORAL DAILY, #30 TAB Lisinopril (Lisinopril*) 20 Mg Tablet 20 MG ORAL BID, #60 TAB Metoprolol Tartrate* (Metoprolol Tartrate*) 100 Mg Tablet 100 MG ORAL EVERY 12 HOURS, #60 TAB Discontinued Medications: Metoprolol Succinate* (Metoprolol Succinate*) 100 Mg Tab.er.24h 100 MG ORAL DAILY, TAB Simvastatin (Zocor) 5 Mg Tablet Unknown Dose ORAL EVERY OTHER DAY, TAB Discharge Condition Upon Discharge: improving Discharge Disposition Patient was discharged to home Discharge Diagnoses: (1) Malignant essential hypertension (2) Respiratory distress (3) ACS (acute coronary syndrome) (4) Hyperlipidemia LDL goal <100 NERY CEBALLOS Nov 15, 2016 08:59
[2016-11-15 09:00] VITALS: BP 157/89
[2016-11-15] MEDS: Aspirin Baby 81mg ORAL SCH (09:16)
[2016-11-15] MEDS: Lisinopril 20mg tab ORAL SCH (09:17)
[2016-11-15] MEDS: Heparin 5000 units/ml inj SUBQ SCH (09:23)
[2016-11-15] MEDS: Furosemide 40mg tab ORAL SCH (09:25)
[2016-11-15 12:00] VITALS: BP 156/96
--- NOTE | 2016-11-15 14:03 | Cardiology Report ---
APPROVED REPORT EKG Measurement Heart [id number] Sinus tachycardia with early part is termination of VT. Possible Left atrial enlargement Left bundle branch block Abnormal ECG
--- NOTE | 2016-11-15 14:21 | Cardiology Report ---
APPROVED REPORT EXAM: Two-dimensional and M-mode echocardiogram with Doppler and color Doppler. INDICATION Congestive Heart Failure M-Mode DIMENSIONS IVSd0.8 (0.7-1.1cm)Left Atrium (MM)3.3 (1.6-4.0cm) LVDd4.9 (3.5-5.6cm)Aortic Root2.3 (2.0-3.7cm) PWd1.1 (0.7-1.1cm)Aortic Cusp Exc.1.6 (1.5-2.0cm) LVDs2.8 (2.5-4.0cm) PWs1.7 cm Technically difficult study due to poor acoustic windows. Study quality precludes accurate assessment of regional wall motion. Normal left ventricular chamber size. Global left ventricular hypokinesis to extent visualized. Left ventricular ejection fraction estimated to be 45-50 %. No evidence of ventricular hypertrophy Anterior Echo-free space, may be due to pericardial fat or effusion. No evidence of systolic RA collapse, early diastolic RV collapse. All other cardiac chamber sizes are within normal limits. Mild focal aortic valve sclerosis with adequate cusp excursion. Mildly thickened mitral valve leaflets with normal excursion. Mild mitral annulus and aortic root calcification. Pulmonic valve not well visualized. Normal tricuspid valve structure. IVC dilated at 2.4 cm with physiologic collapse. A color flow and spectral Doppler study was performed and revealed: No aortic regurgitation. Mild mitral regurgitation. Mitral diastolic velocities suggest reduced left ventricular relaxation (Grade I). Trace tricuspid regurgitation. Tricuspid systolic velocities suggests peak right ventricular systolic pressure of 41 mmHg, consistent with mild pulmonary hypertension. No pulmonic regurgitation present.
--- NOTE | 2016-11-16 01:58 | Progress Note ---
DATE: 11/15/2016 CARDIOLOGY PROGRESS NOTE SUBJECTIVE: The patient was seen and evaluated. Discharge plan was reinforced. Discharge medication regimen was reviewed with the patient. Compliance was stressed. Dietary restrictions were discussed as well. The patient has no shortness of breath or swelling. OBJECTIVE: VITAL SIGNS: Blood pressure 157/89, pulse 69, and respirations 20. LUNGS: Clear. CARDIAC: Regular rhythm and rate. Normal S1 and S2 with a fourth heart sound. ABDOMEN: Soft. EXTREMITIES: With no edema. IMPRESSION: 1. Hypertensive urgency, resolved. 2. Acute on chronic diastolic congestive heart failure, recovered and was likely precipitated by elevated blood pressure. 3. Chronic venous insufficiency, stable. 4. Hypertensive cardiomyopathy compensated. PLAN OF CARE: As outlined. The patient will follow up with primary care physician. Cabrera Rasmussen M.D. DR: Frank JOB#: [id number] CC:
== END 2016-11-15 15:49 | disposition home or self-care (01) | DRG 304 ==
LOC: EDBD 09:37 → EMR 10:00 → 2W 11:15 → EDBEDREQ 12:15 → 2W 16:55
DX: I16.0 Hypertensive urgency (principal); I50.33 Acute on chronic diastolic (congestive) heart failure; I47.2 Ventricular tachycardia; I27.2 Other secondary pulmonary hypertension; I24.9 Acute ischemic heart disease, unspecified; E66.01 Morbid (severe) obesity due to excess calories; I11.0 Hypertensive heart disease with heart failure; E78.5 Hyperlipidemia, unspecified; M17.0 Bilateral primary osteoarthritis of knee; I44.7 Left bundle-branch block, unspecified; R73.9 Hyperglycemia, unspecified; I87.2 Venous insufficiency (chronic) (peripheral)
CPT/HCPCS: 36415; 71010; 80048; 80053; 80061; 81003; 82550; 82553; 82962; 83036; 83605; 83690; 83735; 83880; 84100; 84443; 84484; 85025; 85610; 85730; 87040; 93005; 93306; J1815